=== PATIENT | male | born 1955 | race Caucasian/White ===

== ENCOUNTER 2022-06-03 15:30 | Outpatient (CLI) | payer MEDICARE, OTHER ==
[~2022-06-03 15:30] MED LIST: Iopamidol 370 76% 100 ML VIAL ONE
== END 2022-06-03 15:31 | disposition home or self-care (01) ==
LOC: CSHRAD 15:30
PROVIDERS: ATTEND Urology
DX: Z87.440 Personal history of urinary (tract) infections (principal); I86.1 Scrotal varices
CPT/HCPCS: 74178; Q9967